=== PATIENT | female | born 2000 | race African-American/Black ===

== ENCOUNTER 2018-03-30 18:09 | Emergency (ER) | payer MEDICAID ==
[~2018-03-30] VITALS: Ht 165.1 cm; Wt 53.1 kg
[2018-03-30 18:19] VITALS: Ht 165.1 cm; Wt 53.1 kg
[2018-03-30 18:52] LABS: UA SPECIFIC GRAVITY >=1.030 (1.005-1.035); urine erythrocyte NEGATIVE (NEGATIVE)
[2018-03-30 19:00] LABS: CALCIUM 9.1 mg/dL (8.5-10.1); CHLORIDE SERUM 105 mmol/L (98-107); CREATININE SERUM 0.8 mg/dL (0.6-1.0); GFR1 > 60 mL/min; GLUCOSE SERUM 81 mg/dL (74-106); POTASSIUM SERUM 3.8 mmol/L (3.5-5.1); SODIUM SERUM 141 mmol/L (136-145)
[2018-03-30 19:04] LABS: ALBUMIN 4.2 g/dL (3.4-5.0); ALKALINE PHOSPHATASE 58 U/L (46-116); ALT/SGPT 16 U/L (14-59); AST/SGOT 15 U/L (15-37); BILIRUBIN TOTAL 1.4 mg/dL (0.20-1.00); LIPASE 89 IU/L (73-393)
[2018-03-30 19:12] LABS: BASOPHIL % 0.4 % (0-2); PLATELET COUNT 255 x10^3mcL (130-400); RED CELL DISTRIBUTION WIDTH 13.1 % (11.5-14.5)
[2018-03-30 19:39] LABS: microscopic required? YES
[2018-03-30 21:50] VITALS: BP 106/64
== END 2018-03-30 21:50 | disposition home or self-care (01) ==
LOC: ED 18:09
PROVIDERS: Emergency Medicine
DX: R10.31 Right lower quadrant pain (principal)
CPT/HCPCS: 36415; Q0092

== ENCOUNTER 2018-09-30 16:00 | Emergency (ER) | payer SELFPAY ==
[~2018-09-30] VITALS: Ht 162.6 cm; Wt 54.4 kg
[2018-09-30 16:03] VITALS: BP 103/63
== END 2018-09-30 18:34 | disposition home or self-care (01) ==
LOC: ED 16:00
DX: M54.5 Low back pain (principal)